=== PATIENT | male | born 1985 | race Caucasian/White ===

== ENCOUNTER 2022-11-11 11:13 | Emergency (ER) | payer BC, MEDICAID ==
[2022-11-11] MEDS ORDERED: BACITRACIN ZINC OINT 1 PACKET TOP STA (11:39)
[2022-11-11] MEDS ORDERED: lidocaine 1% 20 ML MDV SUBQ ONE (11:40)
--- NOTE | 2022-11-11 12:11 | ED Physician Documentation ---
History of Present Illness - Stated complaint Stated Complaint: RT FINGER LAC - Chief complaint Chief Complaint: Laceration - Additonal information Additional information: 37-year-old male presents emergency department for evaluation of a right index finger distal tip laceration sustained when cutting monisha at home. He is right-handed. Tetanus is up-to-date. Review of Systems Skin: reports: Laceration (s) PD PAST MEDICAL HISTORY - Past Medical History Past Medical History: Yes - Past Surgical History Past Surgical History: No - Present Medications Home Medications: Ambulatory Orders Medication Instructions Recorded Confirmed No Known Home Medications 11/11/22 11/11/22 - Allergies Allergies/Adverse Reactions: Allergies Allergy/AdvReac Type Severity Reaction Status Date / Time No Known Drug Allergies Allergy Verified 11/11/22 11:25 - Social History Does the pt smoke?: No Smoking Status: Never smoker Does the pt have substance abuse?: No - POLST Patient has POLST: No PD ED PE EXPANDED - Extremities Extremities: Right finger(s) (2.5 cm lack distal tip right index finger ulnar side. Normal flexion extension at DIP joint. Minor numbness ulnar side of index finger distal to laceration. Neurovascular intact otherwise) Results - Vitals Vitals: Vital Signs - 24 hr 11/11/22 11:23 Temperature 37.2 C Heart Rate 81 Respiratory 16 Rate Blood Pressure 156/94 H O2 Saturation 94 Oxygen O2 Source Room air Procedures - Laceration (location) righ tindex finger Length in cm: 2.5 Wound type: Linear, Into subcut fat, Clean Neurovascular status: Motor intact, Vascular intact, Other (ulnar distal tip numbness) Wound preparation: Chlorhexadine Skin layer closure: Nylon, Interrupted, Size #-0 - enter number (4), Sutures - enter # (5) Other: Patient tolerated well, No complications, Neurovascular intact, Tetanus UTD PD Medical Decision Making - ED course Complexity details: d/w patient ED course: 37-year-old male here with a right distal index finger tip laceration sustained when using a razor at home. He is right-hand dominant. Wound was easily closed using 5 interrupted sutures. Tetanus up-to-date. No evidence of tendon injury on exam however he does have some distal tip numbness. Routine wound care in the usual emergent return precautions discussed for concerns of infection or worsening symptoms. Departure - Departure Disposition: 01 Home, Self Care Clinical Impression: Laceration of index finger Qualifiers: Encounter type: initial encounter Damage to nail status: without damage Foreign body presence: without foreign body Laterality: right Qualified Code(s): S61.210A - Laceration without foreign body of right index finger without damage to nail, initial encounter Condition: Stable Instructions: ED Laceration Hand Comments: Your suture(s) should be removed in 7 to 10 days. In 24 hours you may remove the dressing wash gently with warm soap and water, apply any antibiotic ointment and a simple bandage. Your tetanus is up-to-date. Please attempt to keep your wound clean and dry. Do not submerge it in dirty dishwater or bath water. You do have some evidence of numbness on the distal tip. I suspect a superficial nerve injury. However this is something that often improves over the course of several months even up to a year. There is no evidence of tendon injury on your exam. Return to the emergency department if you have any concerns of infection such as redness, fevers milky drainage increased pain.
[2022-11-11 12:27] VITALS: BP 149/85; O2SAT 96
== END 2022-11-11 12:22 | disposition home or self-care (01) ==
LOC: ED 11:13
DX: S61.210A Laceration without foreign body of right index finger without damage to nail, initial encounter (principal); W26.8XXA Contact with other sharp object(s), not elsewhere classified, initial encounter; Y93.89 Activity, other specified; Y92.009 Unspecified place in unspecified non-institutional (private) residence as the place of occurrence of the external cause
CPT/HCPCS: 12001; 99282; A9270